=== PATIENT | female | born 1985 | race Caucasian/White ===

== ENCOUNTER → 2019-09-08 10:07 | Outpatient (CLI) | payer OTHER, MEDICAID, SELFPAY ==
--- NOTE | 2019-09-08 | DI.RAD.S_ITS ---
PROCEDURE: FL BARIUM SWALLOW W SPEECH INDICATIONS: Other dysphagia TECHNIQUE: Examination was conducted in conjunction with speech pathology per standard protocol. In the lateral projection, filming was performed of the patient swallowing. AP projection filming may also be performed with patient swallowing. COMPARISON: None. FINDINGS: Function: The oral preparatory phase appears normal, with proper containment. The subsequent oral propulsive phase, pharyngeal phase, and esophageal phase of swallowing also appear normal with all proffered substances. No laryngotracheal penetration or aspiration. No pathologic vallecular pooling. Morphology: No cricopharyngeal bar is identified. No cervical esophageal webs. No Zenker's diverticulum. No strictures. IMPRESSION: Normal examination. Please also refer to the dedicated speech therapy report which will be independently generated. Dictated by: Julito Lovett M.D. on 09/08/2019 at 11:35 Approved by: Julito Lovett M.D. on 09/08/2019 at 11:35
--- NOTE | 2019-09-09 15:50 | ST.SWALLOW ---
Visit Care Team Role Provider Type Christopher Rojas MD Attending Provider Physician Referring Provider Specialty: Ear, Nose, Throat Address: [address] [place] [address], [id number] Email: ST Modified Barium Swallow Study FRAMING AND HANGING Modified Barium Swallow Study Start: 09/08/19 18:04 Freq: Status: Active Protocol: Document 09/08/19 18:04 LL (Rec: 09/08/19 18:05 LL [id number]) Modified Barium Swallow Study Total Time Visit Start Time 10:25 Visit Stop Time 11:00 Total Visit Minutes 35 Referral Referring Physician Christopher Rojas MD Reason for Referral Dysphagia Setting Setting Outpatient Care Patient Information Identification Type Name,ID Card Patient History Jabier is a 33-year-old female with complaints of frequent coughing and choking on thin liquids, regular diet textures, and medication. Jabier reported that she has experienced swallowing difficulty over the last 1-2 years and that symptoms have been worsening within the last month or so. Per patient report, her medical history includes: fibromyalgia, arthritis, migraines, and GERD . Jabier reported that she currently experiences generalized right sided weakness due to her migraines. Jabier reported that recent (May 2019) cervical MRI results found cervical spine degeneration and enlarged lingual tonsils. Patient had half of her thyroid (left side) removed in 2004 due to nodule growths. Jabier reported new nodule like growths on the right side of her thyroid and a mass in the middle of her neck / throat that is growing larger. Subjective Observations Jabier arrived on time and provided case history. She was able to follow all instructions. Patient Positioning Position View Lat-A/P Imaging Lateral View Textures Administered Trials Presented Thin Liquid via Cup,Thin Liquid via Straw,Regular Textures Oral Phase Source: MBSIMP (TM) (C) Bolus Specific Scoring Grid Lip Closure WFL Tongue Control During Bolus Hold WFL Bolus Prep/Mastication WFL Bolus Transport/Lingual Motion WFL A/P Lingual Propulsion Delay No Oral Residue Minimal Impairment Residue Clearing WFL Nasal Regurgitation No Additional Oral Phase Observations Oral Peripheral Exam: Small oral cavity size and symmetrical structures WFL of strength, coordination, and ROM. Patient has complete natural dentition in good condition. Oral Phase: WNL. Minimal oral residue present which cleared with subsequent swallows, not abnormal for intake of barium contrast. Pharyngeal Phase Source: MBSIMP (TM) (C) Bolus Specific Scoring Grid Delayed Initiation of Pharyngeal Swallow No Soft Palate Elevation WFL Tongue Base Strength/Range of Motion WFL Residue Along the Tongue Base Yes: minimal - cleared with dry swallow Clearance of Residue Along Tongue Base WFL Laryngeal Elevation WFL Anterior Hyoid Movement WFL Epiglottic Range of Motion WFL Vallecular Residue Yes: minimal - cleared with dry swallow Clearance of Vallecular Residue WFL Laryngeal Vestibular Closure WFL Pharyngeal Stripping Wave WFL Pharyngeal Contraction WFL Posterior Pharyngeal Wall Residue Yes: minimal - cleared with dry swallow Clearance of Posterior Pharyngeal Wall WFL Residue Upper Esophageal Sphincter Opening WFL Residue in the Pyriform Sinuses Yes: minimal - cleared with dry swallow Clearance of Residue in the Pyriform WFL Sinuses Esophageal Clearance Upright Position WFL Pharyngoesophageal Backflow Observed No Additional Pharyngeal Phase Observations No penetration or aspiration was observed. Minimal residue was observed at the tongue base, vallecular, and pyriform sinuses which all cleared with subsequent swallows. A/P View Textures Administered Trials Presented Thin Liquid via Cup,Barium Tablet A/P View Observations Pharyngeal Contraction WFL Esophageal Clearance Upright Position WFL Esophageal Observations Esophageal Function Rapid bolus flow through esophagus and into stomach was observed. Clinical Impressions Dysphagia Type WNL Findings Jabier presents with normal oral and pharyngeal phases of swallow. She was educated of findings and recommended to consume small bites/sips, take medications one at a time, and sit upright (90 degrees) as possible to ensure optimal safety for oral intake. She was recommended to follow up with her primary care physician and/or ENT to assess new growths on thyroid and neck/throat. She verbalized understanding and agreement. Patient Appropriate for Therapy No Recommendations Diet Liquids Order Thin Diet Order Regular Medication Recommendation As Tolerated Aspiration Precautions Recommended Precautions Upright at 90 Degrees,Small Bites/Sips Treatment Plan Recommended Referrals Primary Care Physician,ENT Consult Additional Recommendations/Comments Referral to primary care physician and/or ENT to assess new growths on thyroid and neck/throat.
== END ==
PROVIDERS: Referring Provider Otolaryngology; Visit Provider Otolaryngology
DX: R13.19 Other dysphagia (principal)
CPT/HCPCS: 74230; 92611